=== PATIENT | male | born 1960 | race Caucasian/White ===

== ENCOUNTER 2020-02-03 07:32 | Inpatient (IN) ==
--- NOTE | 2020-01-27 09:25 | PAT Medication Instructions ---
Medication Instructions Date of Service January 27, 2020 Home Medications acetaminophen [Tylenol Extra Strength] 500 mg PO QID PRN fexofenadine 60 mg PO QAM qshieupjuwh-nunllnitk-lvy C-Mn [Glucosamine Chondroitin MaxStr] 1 cap PO QAM lisinopril 40 mg PO QAM meloxicam 15 mg PO QAM multivitamin 1 tab PO QAM ASK your surgeon for instructions meloxicam 15 mg PO QAM STOP taking 2 weeks before surgery (or as soon as possible if surgery is within 2 weeks) jehyyqkddze-zabnqfswp-qmr C-Mn [Glucosamine Chondroitin MaxStr] 1 cap PO QAM DO NOT take the morning of surgery fexofenadine 60 mg PO QAM lisinopril 40 mg PO QAM multivitamin 1 tab PO QAM Take morning of surgery With a small sip of water, OTHERWISE NOTHING TO EAT OR DRINK AFTER MIDNIGHT: acetaminophen [Tylenol Extra Strength] 500 mg PO QID PRN(okay to take up to 4 hours prior to surgery if needed) Other Notes If you have any questions please call us at [phone] or [phone] or [phone] or [phone]
--- NOTE | 2020-01-31 11:06 | Anesthesiology Consultation ---
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 No known COVID-19 positive contacts or current COVID-19 related symptoms. Patient had preop COVID test 01/30 ([facility]). Awaiting results. Chart Review Chart Review: Acceptable Risk for Surgery (pending surgeon-ordered PCP clearance) and Patient seen in Pre Admission Testing Teaching & Discussion Pre-Anesthesia Teaching/Discussion Notes: Instructed NPO after midnight before surgery,except medications with 15 cc of water. Medication instructions provided according to the PAT guidelines. History Surgery Operation Date: 02/03/20 09:35 Proposed Procedures p Left Total Knee Arthroplasty - Antoine Whatley MD Height/Weight Height: 6 ft Weight: 117.4 kg Allergies Allergy/AdvReac Type Severity Reaction Status Date / Time No Known Allergies Allergy Verified 02/03/20 07:53 Medications Home Medications Medication Instructions Recorded Confirmed Last Taken acetaminophen [Tylenol Extra 500 mg PO QID PRN 01/12/20 02/03/20 02/02/20 20:00 Strength] fexofenadine 60 mg PO QAM 01/12/20 02/03/20 02/02/20 08:00 sismrikphvx-scowfblwg-omf C-Mn 1 cap PO QAM 01/12/20 02/03/20 01/28/20 [Glucosamine Chondroitin MaxStr] lisinopril 40 mg PO QAM 01/12/20 02/03/20 02/02/20 08:00 meloxicam 15 mg PO QAM 01/12/20 02/03/20 01/28/20 multivitamin 1 tab PO QAM 01/12/20 02/03/20 02/02/20 08:00 Active Medications Generic Name Dose Route Start Last Admin Trade Name Freq PRN Reason Stop Dose Admin Acetaminophen 1,000 mg 02/03/20 06:00 02/03/20 08:11 Acetaminophen 500 Mg Tab PO 02/03/20 18:00 1,000 mg PREOP JUNIOR Administration Celecoxib 200 mg 02/03/20 06:00 02/03/20 08:12 Celebrex 200 Mg Cap PO 02/03/20 18:00 200 mg PREOP JUNIOR Administration Dexamethasone 8 mg 02/03/20 06:00 02/03/20 08:12 Dexamethasone 4 Mg Tab PO 02/03/20 18:00 8 mg PREOP JUNIOR Administration Gabapentin 300 mg 02/03/20 06:00 02/03/20 08:12 Gabapentin 300 Mg Cap PO 02/03/20 18:00 300 mg PREOP JUNIOR Administration Lactated Ringer's 1,000 mls @ 15 mls/hr 02/03/20 06:00 02/03/20 08:12 Lr IV 02/03/20 18:00 15 mls/hr .Q24H JUNIOR Administration Metoclopramide HCl 10 mg 02/03/20 06:00 02/03/20 08:12 Metoclopramide Hcl 10 Mg Tablet PO 02/03/20 18:00 10 mg PREOP JUNIOR Administration Oxycodone HCl 10 mg 02/03/20 06:00 02/03/20 08:11 Oxycodone Hcl 10 Mg Tabcr (Oxycontin) PO 02/03/20 18:00 10 mg PREOP JUNIOR Administration Past Medical History Medical History Acid reflux controlled Diverticular disease Hypertension Obesity Osteoarthritis Exercise / Class Metabolic Activity II 4-5 Yardwork/Stairs/Walk up hill Past Family History Family History Father Esophageal cancer Past Surgical History Surgical History Basal cell carcinoma (BCC) in situ of skin excision (LE) History of arthroscopy R/L History of colonoscopy History of esophagogastroduodenoscopy (EGD) History of nasal septoplasty History of tooth extraction History of total right knee replacement Hx of dislocation of hip left hip (in high school)- reset Hx of inguinal hernia repair Melanoma in situ excision (LE) Past Anesthesia History No Hx of Anesthesia Complications and No Family Hx of Anesthesia Complications History of PONV No Hx of PONV and No Hx of Motion Sickness Social History Smoking Status: Former smoker Do You Dip or Chew Tobacco: No Smoking End Date: Quit 1999 Hx Alcohol Use: Yes Alcohol type: beer alcohol intake frequency: a few times a month Hx Substance Use: No substance use type: does not use Review of Systems Patient denies chest pain, shortness of breath, dyspnea on exertion, fever, chills, cough, wheezing, palpitations. Physical Exam Vital Signs Last Vital Signs Temp 36.6 C 02/03/20 07:55 Pulse 76 02/03/20 07:55 Resp 18 02/03/20 07:55 BP 138/83 02/03/20 07:55 Pulse Ox 98 02/03/20 07:55 VITALS BP 112/75 P 72 TEMP 97.6 SP02 94%RA RESP 16 PHYSICAL Full neck and c-spine range of motion. Full TMJ range of motion. TMD 3 finger breaths Mallampati Score 1 Dentition: missing molars Lungs: clear throughout to auscultation Cardiac: regular rate and rhythm, no murmurs noted Spine: normal Carotid arteries: negative bruit Extremities: no edema Testing Laboratory Results 01/31/20 11:22 01/31/20 11:22 PT 10.5 Seconds (9.0-12.0) 01/31/20 11:22 INR 1.0 (0.9-1.1) 01/31/20 11:22 APTT 27.2 Seconds (21.0-31.0) 01/31/20 11:22 Hemoglobin A1c 5.5 % (4.5-5.6) 01/31/20 11:22 Urine Color Yellow 01/31/20 11:22 Urine Appearance Clear (Clear) 01/31/20 11:22 Urine pH 7.0 (4.5-7.5) 01/31/20 11:22 Ur Specific [place] 1.012 (1.000-1.030) 01/31/20 11:22 Urine Protein Negative (Negative) 01/31/20 11:22 Urine Glucose (UA) Negative (Negative) 01/31/20 11:22 Urine Ketones Negative (Negative) 01/31/20 11:22 Urine Nitrite Negative (Negative) 01/31/20 11: Ur Leukocyte Esterase Negative (Negative) 01/31/20 11: Blood Type O Positive 01/31/20 11:22 Antibody Screen NEGATIVE 01/31/20 11:22 01/31/20 11:22 Urine Culture - Final Urine,Clean Catch No growth - less than 1,000 colonies/mL. Electrocardiogram Date: 01/31/20 SR with PSVC's at 65bpm. Otherwise normal ECG. Chest X-Ray Date: 01/31/20 FINDINGS:Cardiomediastinal and hilar silhouettes are within normal limits. There is no pneumothorax, pleural effusion, airspace consolidation or overt pulmonary edema. Mild eventration of the right hemidiaphragm. Bones of the chest appear grossly intact.IMPRESSION: No acute process.
--- NOTE | 2020-01-31 11:56 | XRay Report ---
XR chest Pre-admission PA/Lat HISTORY: 59 years-old Male pat preoperative exam. No acute chest complaints COMPARISON: None TECHNIQUE: PA and lateral views of the chest FINDINGS: Cardiomediastinal and hilar silhouettes are within normal limits. There is no pneumothorax, pleural e ffusion, airspace consolidation or overt pulmonary edema. Mild eventration of the right hemidiaphragm . Bones of the chest appear grossly intact. IMPRESSION: No acute process. ACT 112: Negative or not required by law. The above report was generated using voice recognition software. It may contain grammatical, syntax o r spelling errors. Electronically signed by: Shin Lester M.D. 01/31/2020 11:54 AM
[2020-01-31 12:37] LABS: Basophils # (auto) 0.03 K/uL (0-0.2); Basophils % (auto) 0.4 %; Eosinophils # (auto) 0.21 K/uL (0-0.5); Eosinophils % (auto) 2.7 %; Hematocrit (blood only) 49.2 % (42-52); Hemoglobin 16.6 g/dL (14.0-18.0); Immature Granulocytes # (auto) 0.02 K/uL (0.00-0.02); Immature Granulocytes % (auto) 0.3 %; Lymphocytes # (auto) 2.45 K/uL (1.2-3.4); Lymphocytes % (auto) 31.9 %; Mean Corpuscular Hemoglobin 31.9 pg (25-34); Mean Corpuscular Hgb Conc 33.7 g/dL (32-36); Mean Corpuscular Volume 94.6 fL (80-100); Mean Platelet Volume 9.7 fL (7.4-10.4); Monocytes # (auto) 0.78 K/uL (0.11-0.59); Monocytes % (auto) 10.1 %; Neutrophils % (auto) 54.6 %; Platelet Count 245 K/uL (130-400); RDW Coefficient of Variation 13.1 % (11.5-14.5); RDW Standard Deviation 45.3 fL (36.4-46.3); White Blood Count 7.69 K/uL (4.8-10.8)
[2020-01-31 12:40] LABS: Appearance Urine Clear (Clear); Bilirubin Urine Negative (Negative); Blood Urine Negative (Negative); Color Urine Yellow; Glucose Urine UA Negative (Negative); Ketones Urine Negative (Negative); Leukocyte Esterase Urine Negative (Negative); Nitrite Urine Negative (Negative); Protein Urine Negative (Negative); Specific Gravity Urine 1.012 (1.000-1.030); Urobilinogen Urine Negative (Negative)
[2020-01-31 12:50] LABS: Partial Thromboplastin Time 27.2 Seconds (21.0-31.0); Prothrombin Time 10.5 Seconds (9.0-12.0)
[2020-01-31 13:14] LABS: Estimated Average Glucose 111 mg/dl; Hemoglobin A1C 5.5 % (4.5-5.6)
--- NOTE | 2020-01-31 13:32 | History & Physical Report ---
Date of Service January 31, 2020 Assessment & Plan (1) Primary osteoarthritis of left knee: Treatment options discussed with the patient. He has failed conservative measures as above. He would like to proceed with surgery. Risks, benefits and alternatives to surgery including but not limited to infection, DVT, pain, stiffness, need for revision surgery, damage to blood vessels, damage to nerves, PE, , were discussed with the patient and they wish to proceed. Plan will be for left total knee arthroplasty on 02/03/20 at [facility]. Will plan on home health PT post discharge and will plan on aspirin 81mg BID x 1 mo post operatively. All questions answered. He will follow up post operatively. History of Present Illness Chief Complaint: Left knee pain Primary Care Provider: Teri Colvin Patient is a 59 year old male with PMHx significant for HTN and GERD who presents with ongoing left knee pain. Previously had right knee replacement and has done well. He has continued pain in knee despite conservative measures including injections and anti-inflammatory medications. He would like to proceed with left knee replacement. Patient denies headaches, sweats, fevers, chills, double vision, blurred vision, cough, sore throat, dysphagia, chest pain, sob, wheezing, n/v/d/c, numbness, tingling, fatigue, urinary symptoms, mood disorders. ROS positive for left knee pain and stiffness. Allergies Allergy/AdvReac Type Severity Reaction Status Date / Time No Known Allergies Allergy Verified 01/12/20 12:11 Home Medications Home Medications Medication Instructions Recorded Confirmed Type acetaminophen [Tylenol Extra 500 mg PO QID PRN 01/12/20 01/12/20 History Strength] fexofenadine 60 mg PO QAM 01/12/20 01/12/20 History fdbdiauicaf-dxjfmklzj-ekj C-Mn 1 cap PO QAM 01/12/20 01/12/20 History [Glucosamine Chondroitin MaxStr] lisinopril 40 mg PO QAM 01/12/20 01/12/20 History meloxicam 15 mg PO QAM 01/12/20 01/12/20 History multivitamin 1 tab PO QAM 01/12/20 01/12/20 History Past Med/Surg History Medical History Acid reflux controlled Diverticular disease Hypertension Obesity Osteoarthritis Surgical History Basal cell carcinoma (BCC) in situ of skin excision (LE) History of arthroscopy R/L History of colonoscopy History of esophagogastroduodenoscopy (EGD) History of nasal septoplasty History of tooth extraction History of total right knee replacement Hx of dislocation of hip left hip (in high school)- reset Hx of inguinal hernia repair Melanoma in situ excision (LE) Family History Father Esophageal cancer Social History Smoking Status: Former smoker Smoking End Date: Quit 1999; Second Hand Exposure: No; Do You Dip or Chew Tobacco: No; Tobacco Cessation Education Requested by Patient: No Hx Alcohol Use: Yes Alcohol type: beer Hx Substance Use: No Preferred Language: Venezuelan Communication Ability: Effective Washing Machine Operator Required: No Beliefs That Will Affect Care: None Current Living Situation: Spouse Other Information That Helps Us Care for You: No Feels Safe at Home: Yes Safety Concerns: Feels Safe At This Time Assistive Devices: Denture - Upper, Denture - Lower and Glasses Review of Systems All systems reviewed & are unremarkable except as noted in HPI & below Physical Exam Constitutional: well developed and well nourished; no acute distress Eyes: PERRL, conjunctivae normal, anicteric sclerae ENMT: external ear and nose normal, oropharynx normal Neck: trachea midline, no thyromegaly Respiratory: normal respiratory effort, lungs clear to auscultation Cardiovascular: RRR, no murmur, no edema Musculoskeletal: Left knee: Tenderness medial joint line, mild effusion. Stable to valgus and varus stress. ROM 5-90 degrees. Positive Rajinder's Skin: no rashes, warm and dry Neurologic: patellar DTR's 2+ bilat, sensation intact Psychiatric: A+Ox3, euthymic affect Results & Data ([facility]) Laboratory Results Lab Results 01/31/20 01/31/20 01/31/20 Range/Units 11:22 11:22 11:22 WBC 7.69 (4.8-10.8) K/uL RBC 5.20 (4.7-6.1) M/uL Hgb 16.6 (14.0-18.0) g/dL Hct 49.2 (42-52) % MCV 94.6 (80-100) fL MCH 31.9 (25-34) pg MCHC 33.7 (32-36) g/dL RDW Std Deviation 45.3 (36.4-46.3) fL RDW Coeff of David 13.1 (11.5-14.5) % Plt Count 245 (130-400) K/uL MPV 9.7 (7.4-10.4) fL Immature Gran % (Auto) 0.3 % Neut % (Auto) 54.6 % Lymph % (Auto) 31.9 % Gentry % (Auto) 10.1 % Eos % (Auto) 2.7 % Baso % (Auto) 0.4 % Neut # (Auto) 4.20 (1.4-6.5) K/uL Lymph # (Auto) 2.45 (1.2-3.4) K/uL Gentry # (Auto) 0.78 H (0.11-0.59) K/uL Eos # (Auto) 0.21 (0-0.5) K/uL Baso # (Auto) 0.03 (0-0.2) K/uL Immature Gran # (Auto) 0.02 (0.00-0.02) K/uL PT (9.0-12.0) Seconds INR (0.9-1.1) APTT (21.0-31.0) Seconds PTT Ratio Estimat Average Glucose mg/dl Hemoglobin A1c (4.5-5.6) % Urine Color Yellow Urine Appearance Clear (Clear) Urine pH 7.0 (4.5-7.5) Ur Specific Collins 1.012 (1.000-1.030) Urine Protein Negative (Negative) Urine Glucose (UA) Negative (Negative) Urine Ketones Negative (Negative) Urine Blood Negative (Negative) Urine Nitrite Negative (Negative) Urine Bilirubin Negative (Negative) Urine Urobilinogen Negative (Negative) Ur Leukocyte Esterase Negative (Negative) Blood Type O Positive Antibody Screen NEGATIVE 01/31/20 01/31/20 Range/Units 11:22 11:22 WBC (4.8-10.8) K/uL RBC (4.7-6.1) M/uL Hgb (14.0-18.0) g/dL Hct (42-52) % MCV (80-100) fL MCH (25-34) pg MCHC (32-36) g/dL RDW Std Deviation (36.4-46.3) fL RDW Coeff of David (11.5-14.5) % Plt Count (130-400) K/uL MPV (7.4-10.4) fL Immature Gran % (Auto) % Neut % (Auto) % Lymph % (Auto) % Gentry % (Auto) % Eos % (Auto) % Baso % (Auto) % Neut # (Auto) (1.4-6.5) K/uL Lymph # (Auto) (1.2-3.4) K/uL Gentry # (Auto) (0.11-0.59) K/uL Eos # (Auto) (0-0.5) K/uL Baso # (Auto) (0-0.2) K/uL Immature Gran # (Auto) (0.00-0.02) K/uL PT 10.5 (9.0-12.0) Seconds INR 1.0 (0.9-1.1) APTT 27.2 (21.0-31.0) Seconds PTT Ratio 1.0 Estimat Average Glucose 111 mg/dl Hemoglobin A1c 5.5 (4.5-5.6) % Urine Color Urine Appearance (Clear) Urine pH (4.5-7.5) Ur Specific Collins (1.000-1.030) Urine Protein (Negative) Urine Glucose (UA) (Negative) Urine Ketones (Negative) Urine Blood (Negative) Urine Nitrite (Negative) Urine Bilirubin (Negative) Urine Urobilinogen (Negative) Ur Leukocyte Esterase (Negative) Blood Type Antibody Screen Diagnostic Findings Left knee: Tricompartmental degenerative changes with periarticular osteophyte formation and subchondral sclerosis. Bone on bone medial compartment
[2020-01-31 13:59] LABS: Albumin Level 3.7 gm/dl (3.4-5.0); BUN Creatinine Ratio 19.4 (10-20); Calcium 9.7 mg/dl (8.5-10.1); Creatinine Clr Calc Pharmacy 91.6 ml/min; Est GFR (African American) 81.7; Est GFR (Non-African American) 70.5; Potassium 4.8 mmol/L (3.5-5.1)
--- NOTE | 2020-01-31 15:10 | Electrocardiogram Report ---
Test Reason : Blood Pressure : / mmHG Vent. Rate : 065 BPM Atrial Rate : 065 BPM P-R Int : 162 ms QRS Dur : 080 ms QT Int : 408 ms P-R-T Axes : 072 055 061 degrees QTc Int : 424 ms Sinus rhythm with Premature supraventricular complexes Otherwise normal ECG No previous ECGs available Confirmed by Pete Moreno ([id number]) on 01/31/2020 3:10:29 PM Referred By: Antoine Whatley Confirmed By:Jesse Moreno
[~2020-02-03 07:32] MED LIST: ACETAMINOPHEN 500 MG TAB PO SCH; BUPIVACAINE 0.25% 30 ML VIAL ONE; BUPIVACAINE 0.5 % 5 MG/1 ML PF 10ML VIAL ONE; CeleBREX 200 MG CAP PO SCH; DEXAMETHASONE SOD INJ 4 MG/ML VIAL ONE; EPINEPHrine INJ 1 MG/ML AMP ONE; GABAPENTIN 300 MG CAP PO SCH; LR 500ML BOLUS, THEN 15ML/HR IV SCH; METOCLOPRAMIDE HCL 10 MG TABLET PO SCH; ROPIVACAINE 0.5% HCL/PF 150 MG, BUPIVACAINE 0.5% MPF 30 ML, EPINEPHrine 30MG/30ML (OR U... INSTIL SCH; TRANEXAMIC ACID 1,000 MG **IV Intra-op IV SCH; TRANEXAMIC ACID 1,000 MG **IV Pre-op IV SCH; ceFAZolin 2000MG 2,000 MG/15 ML SYR IV SCH; dexAMETHasone 4 MG TAB PO SCH; oxyCODONE HCL 10 MG TABCR (OxyCONTIN) PO SCH
[2020-02-03] MEDS ORDERED: fentaNYL citrate 100 MCG/2 ML VIAL ONE (07:56)
[2020-02-03] MEDS ORDERED: MIDAZOLAM HCL 1 MG/ML 2ML VIAL ONE ×2 (07:56→09:38)
[2020-02-03] MEDS ORDERED: BACITRACIN INJ 50,000 UNIT VIAL ONE (08:12)
[2020-02-03] MEDS ORDERED: ORTHO JOINT ANESTHETIC ONE (08:12)
[2020-02-03] MEDS ORDERED: TRANEXAMIC ACID / 0.7% NACL 1000MG/100ML BAG IV ONE (08:18)
--- NOTE | 2020-02-03 08:20 | History & Physical Bridge Note ---
Date of Service February 03, 2020 History & Physical Bridge Note I have examined the patient, reviewed the History & Physical and in the interval since the performance of the History & Physical I have noted the following changes of clinical significance: no changes noted
[2020-02-03] MEDS ORDERED: ATROPINE SULFATE 0.1 MG/ML 10ML SYR IV PRN (09:22)
[2020-02-03] MEDS ORDERED: ePHEDrine sulfate 50 MG/ML AMP IV PRN (09:22)
[2020-02-03] MEDS ORDERED: ONDANSETRON INJ 2 MG/ML 2 ML VIAL IV PRN ×2 (09:22→13:04)
[2020-02-03] MEDS ORDERED: fentaNYL citrate 100 MCG/2 ML VIAL IV PRN (09:22)
[2020-02-03] MEDS ORDERED: PROPOFOL IV EMULSION 10 MG/ML 20 ML VIAL IV ONE (10:02)
[2020-02-03] MEDS ORDERED: LIDOCAINE HCL 2% 2 ML VIAL/AMP(20MG/ML) INFIL ONE (10:02)
[2020-02-03] MEDS ORDERED: ONDANSETRON INJ 2 MG/ML 2 ML VIAL ONE (10:02)
--- NOTE | 2020-02-03 11:38 | Operative Report ---
Post Operative Report Pre & Post Diagnosis Operation Date: 02/03/20 09:35 Pre-Op Diagnosis: Unilateral Primary Osteoarthritis, Left Knee Post-Op Diagnosis: Unilateral Primary Osteoarthritis, Left Knee I identified the patient and participated in the time-out.: Yes Procedure Operation Date: 02/03/20 09:35 Actual Procedures p Left Total Knee Arthroplasty(Left) - Antoine Whatley MD Surgeon Antoine Whatley MD Tax Associate Attorney Igor Lewis PA-C Estimated Blood Loss 20 Findings Consistent with Post-Op Diagnosis Specimens Bone and tissue Drains None Anesthesia Type MAC Spinal Regional Complications none Disposition Accompanied Patient To Recovery: No Disposition: Recovery Room Indications Patient is a 59-year-old male with longstanding arthritis in left knee. He is bqpk-hf-kodp medial compartment. He is failed conservative measures including injection, anti-inflammatories, rehab. He wishes to proceed with a left total knee arthroplasty Description of Procedure Risks benefits and alternatives of surgery including but not limited to infection, DVT, pain, stiffness, need for surgery, damage to blood vessels, damage to nerves or risks of anesthesia were discussed with the patient and they wished to proceed. The patient was identified and the laterality was confirmed and marked. They received a preoperative antibiotic as well as a spinal anesthetic and an abductor canal block. A well-padded tourniquet was applied and then the limb was prepped and draped in standard manner with ChloraPrep. The limb was exsanguinated and the tourniquet was inflated. I made a standard anterior incision. I sharply incised the skin then utilized Bovie electrocautery to achieve hemostasis. I made a medial parapatellar arthrotomy and mobilized the patella laterally. I then excised the anterior horns of the medial and lateral meniscus as well as the infrapatellar fat pad. I elevated a portion of the MCL off of the tibia. I then pinned into place a patient-matched distal femoral cutting guide and made my distal femoral resection. I then pinned into place the 5 in 1 femoral cutting guide. I made my anterior, posterior and chamfer cuts. I then excised the cruciates and the remaining portions of the menisci. I then pinned into place a patient- matched tibial cutting guide and made my tibial resection. I then pinned into place the tibial plate a utilizing alignment kenny to confirm rotation. I then cut for the post. Utilizing a lamina water systems designer and I then removed posterior osteophytes off the femur. I then placed a trial femur into position and cut for the trochlear component. I then sequentially trialed to size the polyethylene until there was good soft tissue balancing and range of motion. I then prepared the patella with a freehand cut utilizing sagittal saw. I sized and drilled for the patella. There was lateral tracking to the patella. A lateral release was required. All the trial components were removed. The deep tissues were anesthetized with an ortho mix solution. Then with Simplex HV with gentamicin cement, I cemented my definitive components. Definitive components, Schulz and Nephew Journey 2: Femur 5 Tibia 5 Poly 9 Patella 32 oval A betadine soak was performed. The arthrotomy was closed with interrupted #1 Vicryl suture subcutaneous tissue was closed with interrupted 2-0 Vicryl suture. The skin was closed with with antonio. An Acticoat and Brian dressing were placed. Sterile dressings were applied. All needle and sponge counts were correct at the end of the procedure patient was transferred to the PACU in stable condition without apparent complication. The PA-C was necessary for assistance with procedure for assistance in positioning, prepping, draping, retraction and closure. I attest to the content of the Intraoperative Record and any orders documented therein. Any exceptions are noted below.
--- NOTE | 2020-02-03 12:53 | XRay Report ---
LEFT KNEE 2 VIEWS History: Left total knee arthroplasty. Degenerative arthritis. Postop. FINDINGS: The patient is status post a left total knee arthroplasty. The hardware is intact. No fract ure or dislocation. Skin antonio are in place. IMPRESSION: Left total knee arthroplasty. No evidence for hardware complication. ACT 112: Negative or not required by law. Electronically signed by: Bandar Herrera M.D. 02/03/2020 12:52 PM
[2020-02-03] MEDS ORDERED: TAMSULOSIN HCL 0.4 MG CAP PO PRN (13:04)
[2020-02-03] MEDS ORDERED: bisacodyL 10 MG SUPP PR PRN (13:04)
[2020-02-03] MEDS ORDERED: oxyCODONE HCL IR 5 MG TAB (IMMEDIATE RELEASE) PO PRN (13:04)
[2020-02-03] MEDS ORDERED: SODIUM CHLORIDE 0.9% 1000ML 1,000 ML IV SCH (13:04)
[2020-02-03] MEDS ORDERED: METOCLOPRAMIDE HCL INJ 5 MG/ML 2 ML VIAL IV PRN (13:04)
[2020-02-03] MEDS ORDERED: HYDROmorphone INJ 0.5 MG/0.5 ML SYR IV PRN (13:04)
[2020-02-03] MEDS ORDERED: MAGNESIUM HYDROXIDE SUSP 30 ML UDC PO PRN (13:04)
[2020-02-03] MEDS ORDERED: NALOXONE HCL 0.4 MG/1 ML VIAL/CARP IV PRN (13:04)
[2020-02-03] MEDS: ACETAMINOPHEN 500 MG TAB PO SCH ×2 (13:47→21:54)
--- NOTE | 2020-02-03 16:11 | Anesthesiology Progress Note ---
Date of Service February 03, 2020 Anesthesia Post Procedure Vital Signs Vital Signs: Temp Pulse Pulse Pulse Resp BP BP 02/03/20 16:04 36.6 C 61 18 110/72 02/03/20 15:13 36.6 C 66 18 131/85 02/03/20 14:00 36.4 C L 59 L 18 116/73 02/03/20 13:00 36.6 C 64 15 108/63 02/03/20 12:57 60 16 110/64 02/03/20 12:45 36.5 C 68 16 113/71 02/03/20 12:35 64 16 101/62 02/03/20 12:25 77 15 117/61 02/03/20 12:16 36.1 C L 88 16 107/70 02/03/20 09:24 36.5 C 58 L 20 106/76 02/03/20 07:55 36.6 C 76 18 138/83 Pulse Ox 02/03/20 16:04 96 02/03/20 15:13 95 02/03/20 14:00 90 02/03/20 13:00 95 02/03/20 12:57 99 02/03/20 12:45 99 02/03/20 12:35 100 02/03/20 12:25 97 02/03/20 12:16 99 02/03/20 09:24 98 02/03/20 07:55 98 Pain Intensity Left Knee: Pain Intensity: 1 Transfer of Care Handoff Completed per policy Notes Mental Status: alert / awake / arousable Patient Amnestic to Procedure: Yes Nausea / Vomiting: adequately controlled Pain: adequately controlled Airway Patency, RR, SpO2: stable & adequate BP & HR: stable & adequate Hydration State: stable & adequate Neuraxial Anesthesia: was administered and sensory block is resolving Anesthetic Complications: no major complications apparent and Pt Satisfied with anesthetic care
[2020-02-03] MEDS: ceFAZolin 2000MG 2,000 MG/15 ML SYR IV SCH (17:03)
[2020-02-03] MEDS: ASPIRIN 81 MG ECTAB PO SCH (20:37)
[2020-02-03] MEDS: CeleBREX 200 MG CAP PO SCH (20:37)
[2020-02-03] MEDS: DOCUSATE SODIUM 100 MG CAP PO SCH (20:37)
[2020-02-03] MEDS ORDERED: SENNA 8.6 MG TAB PO SCH (21:00)
[2020-02-04] MEDS: ceFAZolin 2000MG 2,000 MG/15 ML SYR IV SCH (01:46)
[2020-02-04] MEDS: ACETAMINOPHEN 500 MG TAB PO SCH (05:53)
[2020-02-04 06:33] LABS: Hematocrit (blood only) 46.2 % (42-52); Hemoglobin 15.6 g/dL (14.0-18.0); Mean Corpuscular Hemoglobin 31.8 pg (25-34); Mean Corpuscular Hgb Conc 33.8 g/dL (32-36); Mean Corpuscular Volume 94.1 fL (80-100); Mean Platelet Volume 9.6 fL (7.4-10.4); Platelet Count 211 K/uL (130-400); RDW Coefficient of Variation 12.9 % (11.5-14.5); RDW Standard Deviation 44.6 fL (36.4-46.3); Red Blood Count 4.91 M/uL (4.7-6.1); White Blood Count 15.38 K/uL (4.8-10.8)
[2020-02-04 07:09] LABS: BUN Creatinine Ratio 22.1 (10-20); Calcium 8.8 mg/dl (8.5-10.1); Creatinine Clr Calc Pharmacy 97.6 ml/min; Est GFR (African American) 88.4; Est GFR (Non-African American) 76.2; Potassium 4.8 mmol/L (3.5-5.1)
--- NOTE | 2020-02-04 07:21 | Orthopedic Progress Note ---
Date of Service February 04, 2020 Assessment & Plan (1) Primary osteoarthritis of left knee: POD#1 Left TKA -PT/OT -DVT prophylaxis-ASA 81mg BID x 1 mo, SCDs, TEDs -Pain management -AM labs-hemoglobin stable at 15.6. Mild leukocytosis likely due to preop steroids and surgical stress. -D/C planning-home with plans on HHPT today after PT. Admission and Anticipated Discharge Date Admission Date: February 03, 2020 Subjective Patient is POD 1 left TKA. He is doing well this morning, pain well controlled. Hoping to go home today. Denies chest pain, sob, dizziness, n/v/d, fevers or chills. Review of Systems Review of Systems: All systems reviewed & are unremarkable except as noted in HPI & below Physical Exam Physical Exam: Left knee dressing is c/d/i, toes are mobile with good dorsiflexion, no calf tenderness. Distally n/v status and sensation are intact. Constitutional: well developed and well nourished; no acute distress Results & Data ([facility]) Vital Signs (Past 12 Hours) Vital Signs Temp Pulse Resp BP Pulse Ox 02/04/20 07:08 36.5 C 67 18 126/77 95 02/04/20 03:47 36.4 C L 64 15 119/73 96 02/03/20 23:48 36.9 C 58 L 15 111/69 95 02/03/20 19:25 36.6 C 60 18 131/63 96
[2020-02-04] MEDS: ASPIRIN 81 MG ECTAB PO SCH (08:42)
[2020-02-04] MEDS: CeleBREX 200 MG CAP PO SCH (08:42)
[2020-02-04] MEDS: DOCUSATE SODIUM 100 MG CAP PO SCH (08:42)
[2020-02-04] MEDS ORDERED: FEXOFENADINE 60 MG TAB PO SCH (09:00)
[2020-02-04] MEDS ORDERED: lisinopril 40 MG TAB PO SCH (09:00)
[2020-02-04] MEDS ORDERED: MULTIVITAMIN TAB PO SCH ×2 (09:00)
--- NOTE | 2020-02-04 14:58 | Discharge Summary ---
Date of Service February 04, 2020 Admission HPI Per Admitting Provider Patient is a 59 year old male with PMHx significant for HTN and GERD who presents with ongoing left knee pain. Previously had right knee replacement and has done well. He has continued pain in knee despite conservative measures including injections and anti-inflammatory medications. He would like to proceed with left knee replacement. Patient denies headaches, sweats, fevers, chills, double vision, blurred vision, cough, sore throat, dysphagia, chest pain, sob, wheezing, n/v/d/c, numbness, tingling, fatigue, urinary symptoms, mood disorders. ROS positive for left knee pain and stiffness. Admission Exam Per Admitting Provider Constitutional: well developed and well nourished; no acute distress Eyes: PERRL, conjunctivae normal, anicteric sclerae ENMT: external ear and nose normal, oropharynx normal Neck: trachea midline, no thyromegaly Respiratory: normal respiratory effort, lungs clear to auscultation Cardiovascular: RRR, no murmur, no edema Musculoskeletal: Left knee: Tenderness medial joint line, mild effusion. Stable to valgus and varus stress. ROM 5-90 degrees. Positive Rajinder's Skin: no rashes, warm and dry Neurologic: patellar DTR's 2+ bilat, sensation intact Psychiatric: A+Ox3, euthymic affect Principal Diagnosis Left knee osteoarthritis Discharge Exam Constitutional well developed and well nourished; no acute distress Eyes PERRL, conjunctivae normal, anicteric sclerae ENMT external ear and nose normal, oropharynx normal Neck trachea midline, no thyromegaly Respiratory normal respiratory effort, lungs clear to auscultation Cardiovascular RRR, no murmur, no edema Skin no rashes, warm and dry Neurologic patellar DTR's 2+ bilat, sensation intact Psychiatric A+Ox3, euthymic affect Discharge Data Allergies Allergy/AdvReac Type Severity Reaction Status Date / Time No Known Allergies Allergy Verified 02/03/20 07:53 Consultations 02/03/20 13:04 Consult Case Management - Discharge Planning Routine Procedures Performed Operation Date: 02/03/20 09:35 Actual Procedures p Left Total Knee Arthroplasty(Left) - Antoine Whatley MD Ordered Studies 02/03/20 05:00 US - OR guided needle placemen Routine Hospital Course (1) Primary osteoarthritis of left knee: Patient presented for same day admission following left total knee arthroplasty on 02/03/20. He tolerated procedure well. The Patient had an uneventful hospital course. Post-operatively, his activity was progressed and well tolerated. They participated in PT with ambulation distance of 200 feet. ROM of operative knee reached 85 degrees. Labs remained stable- lowest hemoglobin recorded: 15.6. Pain controlled on oral medications. Please refer to daily progress notes and PT notes for complete details. After exam on 02/04/20, patient was felt to be stable for discharge home with home health PT. Patient will f/u in the office in about 2 weeks for further evaluation including x-rays and incision check, sooner if having any issues or concerns. POD#1 Left TKA -PT/OT -DVT prophylaxis-ASA 81mg BID x 1 mo, SCDs, TEDs -Pain management -AM labs-hemoglobin stable at 15.6. Mild leukocytosis likely due to preop steroids and surgical stress. -D/C planning-home with plans on HHPT today after PT. Total Time Total Time Spent Total Time Spent (In Minutes): 20 Discharge Plan Discharge Items Patient Disposition: Home - Home Health Services Reason For Visit: Unilateral Primary Osteoarthritis, Left Knee Discharge Diagnosis: Left knee osteoarthritis Activity: Per Instructions section Non-emergency contact: Surgeon Call non-emergency contact if: you have any medication questions, your pain is not controlled, your pain is worsening, your pain is concerning for you, you have a fever, your temperature is above 101, your wound has increased redness and your wound has increased drainage Follow-up/Referrals: Teri Colvin D.OAl [Primary Care Provider] - Diet: Regular Addtl Attending Provider Instructions: ACTIVITY RECOMMENDATIONS: SELF CARE INSTRUCTIONS AFTER TOTAL KNEE REPLACEMENT A. You may need to continue a physical therapy program after discharge from the hospital. There are several options available to you. Your doctor will assist you in selecting the best one for you. 1. An out-patient facility 2 to 3 times a week for therapy or home therapy. 2. Continue working on all exercises taught to you in the hospital. Your goals should be to increase bending of your knee to 90 degrees and beyond and to fully straighten your knee. B. You may progress at your own pace from walking with a walker or crutches to a cane; then to no assistive devices. C. Make walking a part of your daily routine. Be up as much as comfortable with rest periods throughout the day. Rest with leg elevation is very important. Use the ice wrap frequently for the first 3-4 weeks. D. There are no restrictions on activities. You may ride in a car, shop, participate in agency operator and all social activities. E. Wear the long elastic stockings (MELANIE hose) 20 hours a day for 2 weeks after surgery. They can be removed several times a day for laundering and for a bath. F. You may shower, no tub baths until cleared by your doctor. SPECIAL CARE INSTRUCTIONS: VERY IMPORTANT TO READ AND REVIEW A. There are a few signs you need to watch for after you are home. Call [facility] [place] if you notice any of the followin. Increased severe knee pain. Some pain is expected especially when you exercise. 2. Increased swelling in your leg or knee; pain or swelling of the calf muscle in either lower leg. 3. Any fluid drainage from the incision. 4. Shortness of breath or chest pain. B. Please call [facility] at if you have any concerns or questions about your operation or recovery. The doctor or his nurse will return your call promptly. C. You must take antibiotics before dental work, bladder, bowel or other surgery. Your doctor will provide you with a permanent care to carry describing this precaution. IMPORTANT: * REMEMBER TO TAKE ASPIRIN, 81 MG, TWICE DAILY FOR 4 WEEKS UNLESS OTHERWISE DIRECTED. THIS IS YOUR BLOOD THINNER. * HIGH RISK PATIENTS MAY BE PRESCRIBED A STRONGER BLOOD THINNER. THIS WILL BE PROVIDED AT DISCHARGE. * CALL IF INCREASED PAIN, REDNESS, DRAINAGE OR FEVER GREATER THAT 101. * WEAR MELANIE HOSE 20 HOURS PER DAY FOR 2 WEEKS. This is a large suction dressing covering your incision. This will help pull any excess drainage from the wound and allow your incision to heal properly. You may shower with this if you can keep the unit outside of the shower. If any bleeding or leakage is noted please call your doctor's office. This will remain on your incision for 7 days and then should be removed. This can be done yourself or by the home nursing staff if applicable. The entire unit is disposable once removed. Once removed, keep incision clean and dry. If redness or drainage is noted, please call your surgeon. FOLLOW UP VISIT: If appointment is not already scheduled: Please call [facility] [place] to make a follow-up appointment for 2 weeks after your surgery at . Stand-Alone Forms: My [facility] [employer], Smoking Cessation Medications and DC Order Prescriptions: New celecoxib [Celebrex] 200 mg Capsule 200 mg PO BID Qty: 60 RF: 0 aspirin 81 mg Tablet,Delayed Release (Dr/Ec) 81 mg PO BID Qty: 60 RF: 0 acetaminophen 500 mg Tablet 1,000 mg PO Q8 Qty: 60 RF: 0 oxycodone 5 mg Tablet 5 - 10 mg PO .Q4h-6h MDD 6 PRN (Reason: pain) Qty: 30 RF: 0 Continued multivitamin Tablet 1 tab PO QAM RF: 0 lisinopril 40 mg Tablet 40 mg PO QAM RF: 0 [id number] C-Mn [Glucosamine Chondroitin MaxStr] 500-400 mg Capsule 1 cap PO QAM RF: 0 fexofenadine 60 mg Tablet 60 mg PO QAM RF: 0 Discontinued meloxicam 15 mg Tablet 15 mg PO QAM RF: 0 acetaminophen [Tylenol Extra Strength] 500 mg Tablet 500 mg PO QID PRN (Reason: Pain) RF: 0 Discharge Orders: Discharge Order (Routine); Ordered 02/04/20 Ordered By: Igor Thomas/Other Patient Handouts: DVT Post Op Prevention Admission Data Admit Date/Time: 02/03/20 12:22 Attending Provider: Antoine Whatley Admit Provider: Antoine Whatley Primary Care Provider: Teri Colvin Other Interventions: Discharge Summary Assessment (RN) Last Done: 02/04/20 10:04
--- NOTE | 2020-02-04 16:18 | Anesthesiology Progress Note ---
Date of Service February 04, 2020 late entry; visited pt at 0730 Anesthesia Post Procedure Vital Signs Vital Signs: Temp Pulse Resp BP Pulse Ox 02/04/20 11:36 36.5 C 72 18 117/72 97 02/04/20 07:08 36.5 C 67 18 126/77 95 02/04/20 03:47 36.4 C L 64 15 119/73 96 02/03/20 23:48 36.9 C 58 L 15 111/69 95 02/03/20 19:25 36.6 C 60 18 131/63 96 Pain Intensity Left Knee: Pain Intensity: 3 Notes Mental Status: alert / awake / arousable and participated in evaluation Nausea / Vomiting: adequately controlled Pain: adequately controlled Airway Patency, RR, SpO2: stable & adequate BP & HR: stable & adequate Hydration State: stable & adequate Neuraxial Anesthesia: was administered and sensory block resolved Anesthetic Complications: no major complications apparent and Pt Satisfied with anesthetic care
== END 2020-02-04 13:12 | disposition home health service (06) | DRG 470 ==
LOC: 3E 07:32 → ASU 07:32 → OBSVTOIN 12:22